=== PATIENT | male | born 1970 | race Caucasian/White ===

== ENCOUNTER 2024-12-15 03:33 | Emergency (ER) | payer OTHER, SELFPAY ==
[2024-12-15] VITALS (9 sets, daily range): BP systolic 105–143; BP diastolic 69–90; PULSE 57–68; BMI 29.8
[2024-12-15 04:04] LABS: % Basophils 0.9 % (0-2); % Eosinophils 1.3 % (0-6); % Immature Granulocytes 0.2 % (0-0.5); % Lymphocytes 30.2 % (20.5-51.1); % Monocytes 16.3 % (1.7-9.3); % Neutrophils 51.1 % (42.2-75.2); Absolute Eosinophils 0.1 10^3/uL (0-0.7); Absolute Lymphocytes 1.4 10^3/uL (1.2-3.4); Absolute Monocytes 0.7 10^3/uL (0.1-0.6); Absolute Neutrophils 2.3 10^3/uL (1.4-6.5); Hemoglobin 13.8 g/dL (13.0-18.0); Mean Corp Hgb Conc. 34.5 g/dL (33.0-37.0); Mean Corpuscular Hgb 31.8 pg (27.0-31.0); Mean Corpuscular Volume 92.2 fL (80.0-94.0); Nucleated Red Blood Cells % 0 % (-); Platelet Count 132 10^3/uL (130-400); Red Blood Cell Count 4.34 10^6/uL (4.70-6.10); Red Cell Dist. Width 12.4 % (11.5-14.5); White Blood Cell Count 4.5 10^3/uL (4.8-10.8)
[2024-12-15 04:06] LABS: COVID-19 Antigen Negative (Negative)
[2024-12-15 04:22] LABS: ALT (SGPT) 28 U/L (0-50); AST (SGOT) 29 U/L (17-59); Albumin 3.7 g/dl (3.5-5.0); Alkaline Phosphatase 58 U/L (38-126); Blood Urea Nitrogen 21 mg/dl (9-20); Calcium 8.8 mg/dl (8.4-10.2); Carbon Dioxide 26 mmol/L (22-30); Chloride 102 mmol/L (98-107); Estimated Creatinine Clearance 93 ml/min; Glucose 106 mg/dl (70-99); Potassium 3.9 mmol/L (3.5-5.1); Sodium 137 mmol/L (135-145); Total Bilirubin 0.4 mg/dl (0.2-1.3); Total Protein 6.1 g/dl (6.3-8.2); eGFR > 60.00
--- NOTE | 2024-12-15 04:39 | ED.GENMED ---
History of Present Illness
<TOOTIE Corbin - Last Filed: 12/15/24 05:06>
General
Chief Complaint: Fainting/Passed Out
Source: patient
Time Seen by Provider: 12/15/24 04:18
History of Present Illness
History of Present Illness:
This is a 54 y/o male with PMH of sarcoidosis who presents to the emergency department after a syncopal episode. Pt arrived via EMS after he had a syncopal episode around 2am. He states that he woke up from sleep to go to the bathroom and while
walking back from the bathroom he didn't feel right and asked his for help, then the next thing he remembers is his on top of him asking if he's okay. He denies known head strike on the tile floor. Denies MON, photophobia, change in vision,
nausea, vomiting. He admits to general feeling of unwell this week and admits to cough, diarrhea, rhinorrhea and fever (max temp of 101.0) for the last 4 days. Cough is nonproductive and dry. Denies tobacco, alcohol and illicit drug use. Denies
known history of structural cardiac conditions and family history of sudden cardiac .
Past History
<TOOTIE Corbin - Last Filed: 12/15/24 05:06>
Past History
ED Past Medical History: Other (Sarcoidosis, HTN, borderline hyperlipidemia )
ED Past Surgical History: Other (L great toe bunionectomy, L hand tendon repair, vasectomy, lymph node removal L shoulder (bx negative). )
Social History
Tobacco: Smoker
Alcohol: Occasional
Drug: None
Living: with family
Employment: Employed (insurance)
Phy Exam
<TOOTIE Corbin - Last Filed: 12/15/24 05:06>
Physical Exam
Physical Exam:
Skin: [place], soft, well-hydrated
Head: Atraumatic, normocephalic; scalp, pink freely moveable without tenderness
Eyes: PERRLA
Nose and Sinuses: Nares patent bilaterally without flaring; no frontal or maxillary sinus tenderness with palpation
Chest and Lungs: muscle and respiratory effort symmetric without use of accessory muscles; vesicular breath sounds with audible wheezes bilaterally; even breathing with wheezes
Heart: No lifts or heaves visible; regular rate and rhythm; No murmurs, rubs or gallops
Course
<Radha Amador [facility] - Last Filed: 12/15/24 05:06>
Orders/Labs/Results
Orders:
Orders
12/15/24 03:35
Electrocardiogram (*1) Urgent
Reason for Study: Syncope
EKG- Treatment ONCE
12/15/24 03:40
CMP [Comprehensive Metabolic Panel] Urgent
COVID-19 Antigen Urgent
Source: Nasal Swab
Complete Blood Count/With Diff Urgent
Influenza A+B Rapid Molecular Urgent
DAWSON Source: Nasal Swab
Specimen Description:
12/15/24 04:37
Orthostatic VS- Treatment ONCE
12/15/24 04:50
0.9% Sodium Chloride 1000 ml [Nss] 1,000 ml IV BOLUS
Abnormal Lab Results
12/15/24
03:40
WBC 4.5 L 10^3/uL
(4.8-10.8)
RBC 4.34 L 10^6/uL
(4.70-6.10)
MCH 31.8 H pg
(27.0-31.0)
Absolute Monos (auto) 0.7 H 10^3/uL
(0.1-0.6)
Monocytes % 16.3 H %
(1.7-9.3)
BUN 21 H mg/dl
(9-20)
Glucose 106 H mg/dl
(70-99)
Total Protein 6.1 L g/dl
(6.3-8.2)
12/15/24 03:40
12/15/24 03:40
Vital Signs
Initial and Last Documented VS:
Initial Vital Signs
Temp Pulse Resp BP Pulse Ox
99.4 F 59 12 131/90 98
12/15/24 03:38 12/15/24 03:38 12/15/24 03:38 12/15/24 03:38 12/15/24 03:38
Last Documented Vital Signs
Temp Pulse Resp BP Pulse Ox
99.4 F 59 15 141/74 97
12/15/24 03:38 12/15/24 04:15 12/15/24 04:15 12/15/24 04:00 12/15/24 04:15
<Beverley Alvares, DO - Last Filed: 12/15/24 06:15>
Orders/Labs/Results
Orders:
Orders
12/15/24 03:35
Electrocardiogram (*1) Urgent
Reason for Study: Syncope
EKG- Treatment ONCE
12/15/24 03:40
CMP [Comprehensive Metabolic Panel] Urgent
COVID-19 Antigen Urgent
Source: Nasal Swab
Complete Blood Count/With Diff Urgent
Influenza A+B Rapid Molecular Urgent
DAWSON Source: Nasal Swab
Specimen Description:
12/15/24 04:37
Orthostatic VS- Treatment ONCE
12/15/24 04:50
0.9% Sodium Chloride 1000 ml [Nss] 1,000 ml IV BOLUS
Abnormal Lab Results
12/15/24
03:40
WBC 4.5 L 10^3/uL
(4.8-10.8)
RBC 4.34 L 10^6/uL
(4.70-6.10)
MCH 31.8 H pg
(27.0-31.0)
Absolute Monos (auto) 0.7 H 10^3/uL
(0.1-0.6)
Monocytes % 16.3 H %
(1.7-9.3)
BUN 21 H mg/dl
(9-20)
Glucose 106 H mg/dl
(70-99)
Total Protein 6.1 L g/dl
(6.3-8.2)
12/15/24 03:40
12/15/24 03:40
Vital Signs
Initial and Last Documented VS:
Initial Vital Signs
Temp Pulse Resp BP Pulse Ox
99.4 F 59 12 131/90 98
12/15/24 03:38 12/15/24 03:38 12/15/24 03:38 12/15/24 03:38 12/15/24 03:38
Last Documented Vital Signs
Temp Pulse Resp BP Pulse Ox
99.4 F 59 15 141/74 97
12/15/24 03:38 12/15/24 04:15 12/15/24 04:15 12/15/24 04:00 12/15/24 04:15
<TOOTIE Corbin - Last Filed: 12/15/24 05:06>
MDM/Problems Addressed
MDM/Problems Addressed:
This is a 54 y/o male who presents to the ED after a syncopal episode. He got up from bed at home to use the bathroom and on his walk back from the bathroom he had prodrome prior to LOC. Pt is flu positive. Admits to cough, fever, diarrhea and
rhinorrhea over the last 4 days. Witnessed pt ambulate without any dysfunction and no dizziness or similar prodromal sx when used bathroom at 5:00am.
<TOOTIE Corbin - Last Filed: 12/15/24 05:06>
*Critical Care Note
Total Time (30-74mins, 75-104mins- exclusive of procedures): Not Applicable
<Beverley Alvares DO - Last Filed: 12/15/24 06:15>
*Pulse Oximetry
Patient hypoxic: no
*EKG
Interpreted by ED Provider?: Yes
Comparison EKG: no changes (Unchanged from previous 2012 save her heart rate has decreased from 95 to now 59)
Rate: bradycardiac
Rhythm: sinus
Man: normal axis
Interval: normal interval
QRS Pattern: right bundle branch block (Incomplete right bundle branch block)
Ischemia: no ischemia
*Canvas Baster Jumpbasting Interpretation
Rate: normal
Interpretation: normal
Rhythm: sinus
ED Attending Note
<TOOTIE Corbin - Last Filed: 12/15/24 05:06>
-
Portions of this chart may have been created with voice recognition software.� Occasional wrong word or��sound alike� substitutions may have occurred due to the inherent limitations of voice recognition software.
<Beverley Alvares DO - Last Filed: 12/15/24 06:15>
ED Attending Note
Patient seen and examined by attending physician: Yes
I performed the substantive portion of visit, reviewed & personally made and approve the management plan that is documented in note by myself or ELEONORA.: Yes
ED Attending Note:
This is a 54-year-old gentleman who has no significant past medical history, takes no medicines on a daily basis. He admits to 1 week history of cough, congestion, low-grade fever, generalized aches.
He has been quite active throughout the week and even exercise on the treadmill yesterday evening. He got up out of bed to go to the bathroom and upon returning he began to feel lightheaded, tunnel vision, diaphoretic and then proceeded to pass
out. He admits that he attempted to call for his and attempted to ambulate to the bedroom but passed out prior to doing so.
No prior history of syncope. He denies injury. He denies chest pain or palpitations. No neck pain or back pain.
He arrives via EMS and was noted to be hypotensive prehospital with systolic blood pressure upon standing of 80. IV established prehospital and received IV normal saline bolus.
GENERAL: 54-year-old male appears mildly older than stated age, awake and alert, pleasant, appears in no acute distress. Rare nonproductive cough is noted. Respirations are easy and nonlabored. Low-grade fever noted 99.4 �F.
EYE: pupils equal and reactive. anicteric. The head is normocephalic, atraumatic.
NECK: Supple, nontender, no meningismus, no significant adenopathy.
ENT: posterior pharynx is clear, oral mucosa is moist. TM clear b/l, nares patent.
CARDIAC: Regular rate and rhythm. no murmur. No chest wall tenderness.
LUNGS: Clear breath sounds bilaterally, no acute respiratory distress, no wheezes/rales/rhonchi
ABDOMEN: Soft, nondistended, without focal tenderness, no r/g, no cvat. normoactive BS.
NEUROLOGICAL: Alert and oriented x3, no focal neuro deficits.
SKIN: Warm and dry, normal color, skin intact. No rash.
MUSCULOSKELETAL: No C/C/E. peripheral pulses are full and equal b/l. No palpable tenderness.
PSYCH: Normal and appropriate interaction.
Patient presents after syncopal episode with prodrome of lightheadedness, tunnel vision, most consistent with vasovagal episode.
He has had URI symptoms over the past week, low-grade fever. Found to be positive for influenza A. This is likely cause for his URI symptoms.
COVID-19 is negative.
Labs are unremarkable save for mild neutropenia with white blood cell count 4.5. Normal H&H. Chemistries reveal very minimally elevated BUN of 21, normal creatinine of 1.1. Normal glucose.
EKG Shows sinus bradycardia 59, borderline right bundle branch block. Heart rate has decreased from 95 to now 59, otherwise similar to previous EKG August 2013.
Monitor shows normal sinus rhythm in the 60s.
As URI symptoms have been ongoing for 1 week, Tamiflu is not indicated.
Will continue IV fluids and assess orthostatic vital signs.
Will encourage clear liquids.
06:15
Orthostatic vital signs mildly positive.
Patient feeling improved after 1 L normal saline solution. Second liter is now infusing but he has been successful and ambulated to and from the bathroom without symptomatology.
Monitor continues to show normal sinus rhythm.
After additional 1 L normal saline will plan for discharge to home.
Discussed importance of rest over the next several days, staying well-hydrated on a daily basis.
Tylenol versus ibuprofen as needed for fever, aches.
Prompt follow-up with PCP for recheck.
Discharge Plan
Departure
Patient Disposition: Home (Routine Discharge)
Date of Disposition: 12/15/24
Time of Disposition: 06:04
Patient with high blood pressure during this ER visit?: No
Condition: Good
Discharge Problem:
Influenza A, Vasovagal syncope
Instructions: Syncope (Fainting) (DC), Flu in adults - Discharge instructions
Prescriptions:
No Action
No Current Medications
0
Referrals:
Dallas Hernandez MD [Family Provider] - Call in 1-3 days for appt
Interventions
Interventions:
*Risk Screen - Suicide Last Done: 12/15/24 03:38
*General Assessment Last Done: 12/15/24 03:38
*Neglect/Abuse Screening Last Done: 12/15/24 03:38
ED- Fall Risk Assessment Last Done: 12/15/24 04:24
*ED COVID-19 Vaccine History Last Done: 12/15/24 03:38
ED- Cardiac Assessment Last Done: 12/15/24 04:24
ED- Neurological Assessment Last Done: 12/15/24 04:24
Discharge Date and Time
Print Language: SINHALA
--- NOTE | 2024-12-15 04:48 | EDRN ---
Patient ambulated into the restroom and back in bed, was able to ambulate without difficulty, got patient a cup of water as well
[2024-12-15] MEDS: NSS 1000 IV (05:22)
--- NOTE | 2024-12-15 06:08 | EDRN ---
Patient ambulated to the restroom and back in bed resting comfortably without any issues
== END 2024-12-15 06:56 | disposition home or self-care (01) ==
LOC: EMR 03:33
PROVIDERS: EMERGENCY PHYSICIAN Emergency Medicine; FAMILY PHYSICIAN Family Medicine
DX: J10.1 Influenza due to other identified influenza virus with other respiratory manifestations (principal); R55 Syncope and collapse; I10 Essential (primary) hypertension; D86.9 Sarcoidosis, unspecified; F17.200 Nicotine dependence, unspecified, uncomplicated
CPT/HCPCS: 99284; 96360; 80053; 85025; 87502; 87811; 93005